=== PATIENT | female | born 1990 | race American Indian/Alaskan Native ===

== ENCOUNTER 2017-04-19 14:28 | Outpatient (CLI) | payer OTHER, MEDICAID ==
[2017-04-19 14:48] VITALS: BP 124/71
[2017-04-19] MEDS ORDERED: VISTARIL PO PRN (16:16)
--- NOTE | 2017-04-20 10:39 | Ultrasound Report ---
ULTRASOUND OB LIMITED History: Rupture of membranes Technique: Transabdominal ultrasound with Doppler interrogation. Gestation: Single Position: Cephalic Amniotic Fluid: Normal JOSEPH = 17.6 cm Heart Rate: 143 BPM
== END 2017-04-19 16:28 | disposition home or self-care (01) ==
LOC: TRG 14:28
PROVIDERS: ATTEND Obstetrics & Gynecology
DX: O42.92 Full-term premature rupture of membranes, unspecified as to length of time between rupture and onset of labor (principal); O48.0 Post-term pregnancy; Z3A.40 40 weeks gestation of pregnancy
CPT/HCPCS: 76815; Q0177